=== PATIENT | female | born 1965 | race Caucasian/White ===

== ENCOUNTER 2016-04-07 11:46 | Emergency (ER) | payer OTHER ==
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
[~2016-04-07 11:46] MED LIST: AUGMENTIN875 MG PO; FLONASE16 GM; KLONOPIN PO; PREDNISONE PO; ZITHROMAX PO
== END 2016-04-07 13:26 | disposition home or self-care (01) ==
LOC: SED 11:46
DX: S13.4XXA Sprain of ligaments of cervical spine, initial encounter (principal); R51 Headache; V43.62XA Car passenger injured in collision with other type car in traffic accident, initial encounter; Y92.410 Unspecified street and highway as the place of occurrence of the external cause
CPT/HCPCS: 70450; 72125; 99284